=== PATIENT | female | born 1985 | race Two or more races ===

== ENCOUNTER 2022-07-17 09:35 | Outpatient (CLI) | payer OTHER | END 2022-07-17 09:43 | disposition home or self-care (01) | LOC: RX STUDY 09:35 | PROVIDERS: ATTEND Obstetrics & Gynecology Reproductive Endocrinology | DX: N93.0 Postcoital and contact bleeding (principal) ==

== ENCOUNTER 2023-05-08 05:59 | Inpatient (IN) | payer OTHER ==
[~2023-05-08] VITALS: Ht 172.7 cm; Wt 88.9 kg
[2023-05-08] MEDS ORDERED: OXYTOCIN 500 ML IV ONE (07:30)
[2023-05-08] MEDS ORDERED: CHLORHEXIDINE GLUCONATE 120 ML BOTTLE TOP ONE (07:59)
[2023-05-08] MEDS ORDERED: OXYTOCIN 20 UNITS/1000ML RL PIGGYBAG IV ONE (07:59)
[2023-05-08] MEDS ORDERED: ERYTHROMYCIN BASE 1 GM TUBE OP ONE ×3 (07:59→21:00)
[2023-05-08] MEDS ORDERED: SYNTHROID137 MCG PO (08:28)
[2023-05-08] MEDS ORDERED: PRENATAL TABLE1 EAC1 PO (08:28)
[2023-05-08] MEDS ORDERED: RINGERS SOLUTION,LACTATED 1,000 ML IV SCH (09:00)
[2023-05-08 09:01] LABS: HEMATOCRIT 35.7 % (36.0-45.00); HEMOGLOBIN 12.1 g/dL (12.0-15.00); MEAN CELL VOLUME 86.9 fL (80.00-100.00); MEAN CORPUSCULAR HEMOGLOBIN 29.4 pg (27.00-32.0); MEAN CORPUSCULAR HGB CONC 33.8 g/dl (32.0-36.0); PLATELET COUNT 190 K/uL (150-450); RED BLOOD COUNT 4.11 M/uL (4.00-6.00); RED CELL DISTRIBUTION WIDTH 14.1 % (11.5-14.5)
[2023-05-08 09:40] LABS: INR < 0.93; PARTIAL THROMBOPLASTIN TIME 28.9 SECONDS (22.0-34.0); PROTHROMBIN TIME 9.3 SECONDS (9.0-11.5)
[2023-05-08 09:50] LABS: ALBUMIN 2.6 gm/dL (3.4-5.0); BILIRUBIN TOTAL 0.42 mg/dL (0.3-1.2); CALCIUM 8.9 mg/dL (8.5-10.1); CREATININE SERUM 0.53 mg/dL (0.55-1.02); GFR 129.8; GLOBULINA 3.5 G/DL (2.4-3.5); POTASSIUM 4.39 mEq/L (3.5-5.1); TOTAL PROTEIN 6.1 gm/dL (6.4-8.2)
[2023-05-08] MEDS ORDERED: MORPHINE SULFATE 4 MG/ML CARTRIDGE IV PRN (14:30)
[2023-05-08] MEDS ORDERED: CITRIC ACID/SODIUM CITRATE 30 ML BLIST.PACK PO STA (18:10)
[2023-05-08] MEDS ORDERED: CEFOXITIN SODIUM 2,000 MG VIAL IV STA (18:10)
[2023-05-08] MEDS ORDERED: OXYTOCIN 10 UNITS/ML VIAL ONE (18:27)
[2023-05-08] MEDS ORDERED: CEFAZOLIN SODIUM 1,000 MG VIAL ONE (18:29)
[2023-05-08 21:00] LABS: ABG PH 7.331 (7.35-7.45); ABG PO2 22.7 mmHg (80-100); ABG pCO2 40.7 mmHg (35-45); BASE EXCESS -4.6 mmol/l; SaO2 33.2 %
[2023-05-08] MEDS ORDERED: OXYTOCIN 10 UNITS/ML VIAL IV ONE (21:00)
[2023-05-08] MEDS ORDERED: METHYLERGONOVINE MALEATE 0.2 MG/ML AMPUL IM ONE (21:00)
[2023-05-08 21:01] LABS: Tco2 22.2 mmol/l; o2 21 %
[2023-05-08] MEDS ORDERED: OXYTOCIN 1,000 ML IV SCH (22:15)
[2023-05-08] MEDS ORDERED: PROMETHAZINE HCL 25 MG/ML AMPUL IM PRN (22:15)
[2023-05-08] MEDS ORDERED: MEPERIDINE HCL/PF 50 MG/ML VIAL IM PRN (22:15)
[2023-05-08] MEDS ORDERED: KETOROLAC TROMETHAMINE 30 MG VIAL IM ONE (22:15)
[2023-05-09] MEDS ORDERED: KETOROLAC TROMETHAMINE 10 MG TABLET PO SCH
[2023-05-09 00:49] LABS: HEMATOCRIT 35.1 % (36.0-45.00); MEAN CELL VOLUME 87.2 fL (80.00-100.00); MEAN CORPUSCULAR HEMOGLOBIN 29.7 pg (27.00-32.0); PLATELET COUNT 185 K/uL (150-450); RED BLOOD COUNT 4.03 M/uL (4.00-6.00); RED CELL DISTRIBUTION WIDTH 13.7 % (11.5-14.5)
[2023-05-09] MEDS ORDERED: SIMETHICONE 125 MG CAPSULE PO SCH (01:00)
[2023-05-09] MEDS ORDERED: CEFOXITIN SODIUM 2,000 MG VIAL IV ONE (01:00)
[2023-05-09] MEDS ORDERED: LEVOTHYROXINE SODIUM 137 MCG TABLET PO SCH (06:00)
[2023-05-09] MEDS ORDERED: OxyCODONE HCL/APAP UD (PERCOCET) PO PRN (08:15)
[2023-05-09] MEDS ORDERED: IBUprofen 400 MG TABLET PO PRN (08:15)
[2023-05-09 11:42] LABS: HEMATOCRIT 33.5 % (36.0-45.00); HEMOGLOBIN 11.6 g/dL (12.0-15.00); MEAN CORPUSCULAR HEMOGLOBIN 30.5 pg (27.00-32.0); MEAN CORPUSCULAR HGB CONC 34.7 g/dl (32.0-36.0); PLATELET COUNT 186 K/uL (150-450); RED BLOOD COUNT 3.81 M/uL (4.00-6.00); RED CELL DISTRIBUTION WIDTH 14.1 % (11.5-14.5)
== END 2023-05-11 17:27 | disposition home or self-care (01) | DRG 788 ==
LOC: LDR 05:59 → O/R 19:41 → OB/GYN 20:18
PROVIDERS: Obstetrics & Gynecology Maternal & Fetal Medicine; ADMIT Obstetrics & Gynecology; ATTEND Obstetrics & Gynecology
PROC: 4A1HXCZ Monitoring of Products of Conception, Cardiac Rate, External Approach (ICD-10-PCS; 2023-05-08)
PROC: 10D00Z1 Extraction of Products of Conception, Low, Open Approach (ICD-10-PCS; principal; 2023-05-08 18:00)
DX: O33.8 Maternal care for disproportion of other origin (principal); O62.0 Primary inadequate contractions; O75.89 Other specified complications of labor and delivery; Z3A.39 39 weeks gestation of pregnancy; Z37.0 Single live birth; Z20.822 Contact with and (suspected) exposure to COVID-19